=== PATIENT | male | born 1955 | race Two or more races ===

== ENCOUNTER 2023-09-01 15:28 | Emergency (ER) | payer MEDICARE, OTHER ==
[~2023-09-01] VITALS: Ht 182.9 cm; Wt 85.0 kg
[2023-09-01 16:27] LABS: Basophils # (auto) 0 10 ^3/uL (0-0.2); Basophils % (auto) 0.4 % (0.0-2.0); Eosinophils # (auto) 0 10 ^3/uL (0-0.8); Eosinophils % (auto) 0.1 % (0.0-7.0); Lymphocytes % (auto) 8.9 % (10.0-50.0); Mean Corpuscular Hemoglobin 29.2 pg (28.0-32.0); Mean Corpuscular Hgb Conc. 33.3 g/dL (32.0-36.0); Mean Corpuscular Volume 87.6 fL (80.0-100.0); Monocytes # (auto) 0.7 10 ^3/uL (0-1.3); Monocytes % (auto) 5.9 % (0.0-12.0); Neutrophils # (auto) 9.4 10 ^3/uL (1.6-8.6); Neutrophils % (auto) 84.7 % (37.0-80.0); Nucleated Red Blood Cells % 0.2 %; Red Blood Cells 5.47 10^6/uL (4.5-5.90); Red Cell Distribution Width 14.2 % (11.8-14.3); White Blood Cell 11.1 10^3/uL (4.4-10.8)
[2023-09-01 16:48] LABS: Alanine Aminotransferase 32 U/L (7-40); Albumin 4.8 g/dL (3.2-4.8); Alkaline Phosphatase 123 U/L (46-116); Anion Gap 6 (5-15); Aspartate Aminotransferase 30 U/L (13-40); BUN/Creatinine Ratio 12.7 (10.0-20.0); Blood Urea Nitrogen 14 mg/dL (9-23); Calcium 10.9 mg/dL (8.5-10.1); Carbon Dioxide 27 mmol/L (20-30); Chloride 100 mmol/L (98-107); Glucose 371 mg/dL (74-106); Potassium 4.3 mmol/L (3.5-5.1); Sodium 133 mmol/L (136-145); Total Protein 7.4 g/dL (5.7-8.2)
[2023-09-01] MEDS: INSULIN LISPRO (HUMAN) 100 UNITS/ML ML SC ONE (17:45)
[2023-09-01] MEDS: HYDROcodone-ACET 5/325MG TAB PO ONE (18:42)
[2023-09-01] MEDS: cloNIDine HCL 0.1 MG TAB PO ONE (18:43)
[2023-09-01] MEDS: SODIUM CHLORIDE 0.9% 1,000 ML IV ONE (19:00)
[2023-09-01] MEDS ORDERED: LISI10TA34 PO (20:48)
[2023-09-01] MEDS ORDERED: INSU50IN6 SC (20:48)
[2023-09-01 22:50] VITALS: BP 99/60; PULSE 81; RESP 16; TEMP 98.4; O2SAT 96
== END 2023-09-01 23:01 | disposition home or self-care (01) ==
LOC: ER 15:28
DX: S20.219A Contusion of unspecified front wall of thorax, initial encounter (principal); E11.65 Type 2 diabetes mellitus with hyperglycemia; I10 Essential (primary) hypertension; W18.39XA Other fall on same level, initial encounter; Y93.89 Activity, other specified; Y92.89 Other specified places as the place of occurrence of the external cause; Y99.8 Other external cause status
CPT/HCPCS: 36415; 71046; 80053; 83605; 83880; 84484; 85025; 93005; 96360; 96372; 99285; J1815; J7030